=== PATIENT | female | born 1980 | race Caucasian/White ===

== ENCOUNTER 2023-10-19 06:06 | Day surgery (SDC) | payer OTHER, SELFPAY ==
[2023-10-18 08:39] LABS: Hematocrit 40.7 % (37.0-47.0); Hemoglobin 14.3 g/dL (12.0-16.0); Mean Corp Hgb Conc. 35.1 g/dL (33.0-37.0); Mean Corpuscular Volume 88.3 fL (81.0-99.0); Mean Platelet Volume 10.3 fL (7.4-10.4); Platelet Count 253 10^3/uL (130-400); Red Blood Cell Count 4.61 10^6/uL (4.20-5.40); Red Cell Dist. Width 12.6 % (11.5-14.5); White Blood Cell Count 3.4 10^3/uL (4.8-10.8)
[2023-10-18 09:07] LABS: ALT (SGPT) 20 U/L (0-35); AST (SGOT) 28 U/L (14-36); Albumin 4.4 g/dl (3.5-5.0); Alkaline Phosphatase 59 U/L (38-126); Blood Urea Nitrogen 7 mg/dl (7-17); Carbon Dioxide 27 mmol/L (22-30); Chloride 104 mmol/L (98-107); Glucose 93 mg/dl (70-99); Potassium 4.6 mmol/L (3.5-5.1); Sodium 137 mmol/L (135-145); Total Bilirubin 0.5 mg/dl (0.2-1.3); eGFR > 60.00
[2023-10-18 09:14] LABS: Prealbumin (Transthyretin) 26.7 mg/dl (17.6-36.0)
[2023-10-18 09:27] LABS: Vitamin D, 25-OH*** 61.2 ng/mL (30-80)
[2023-10-18 16:39] VITALS: BMI 25.7
[2023-10-19 06:36] VITALS: BMI 25.7
[2023-10-19 06:37] VITALS: BP 123/80
[2023-10-19] MEDS: TYLENOL 1000 MG PO (07:00)
[2023-10-19] MEDS: NORMOSOL-R 1000 IV (07:01)
[2023-10-19 09:08] VITALS: BP 127/66
[2023-10-19 09:15] VITALS: BP 105/53
[2023-10-19 09:30] VITALS: BP 127/83
[2023-10-19 09:45] VITALS: BP 125/66
== END 2023-10-19 10:08 | disposition home or self-care (01) ==
LOC: SDS 06:06
PROVIDERS: ATTENDING PHYSICIAN Surgery; FAMILY PHYSICIAN Internal Medicine; OTHER PHYSICIAN Internal Medicine Hematology & Oncology
DX: D24.2 Benign neoplasm of left breast (principal); N63.20 Unspecified lump in the left breast, unspecified quadrant
CPT/HCPCS: 19301; 88305; 88307; 36415; 80053; 82306; 84134; 85027; 88341; 88342

== ENCOUNTER 2023-12-04 00:47 | Emergency (ER) | payer OTHER, SELFPAY ==
[2023-12-04 00:52] VITALS: BP 142/83
--- NOTE | 2023-12-04 01:13 | ED.GENMED ---
History of Present Illness
General
Chief Complaint: Anxiety
Source: patient
Exam Limitations: none
Time Seen by Provider: 12/04/23 00:59
Travel History
Have you had any contact with someone who has COVID-19?: No
Do you have any symptoms of coronavirus? Fever > 100 degrees, chills, cough, shortness of breath, sore throat, loss of taste or smell, muscle aches, or headache?: No
History of Present Illness
History of Present Illness:
This is a 43 year old female that comes in with c/o panic attack. States that she stopped taking her Anxiety medication about 2 weeks ago. States that she was taking more then 3 times daily that she had gone up to 4 times daily and she told her
doctor about this. States that he did increase her frequently. States that she ran out and it due to get them delivered tomorrow. States that she was trying to wean herself off as she takes so many medications. States that she had some chest
tightness and some SOB that she feels is all related to her anxiety. Denies any fever, chills, abd pain, nausea, vomiting, diarrhea, headache, dizziness, urinary burning.
Past History
Past History
ED Past Medical History: Cancer (Breast), Fibromyalgia, GERD, Psychiatric (Anxiety, Depression, Panic disorder) and Other (Vertigo, Migraines, Cellulitis, Neuropathy, numbness/tingling arms and legs. Demyelination of the Cervical spine, Anemia, )
ED Past Surgical History: Gynecological ( oophorectomy in 2017) and Other (Bilateral mastectomies 06/2014. Then reconstruction with transflap ( Failed), Recently reconstruction with right shoulder musculature 2017 right breast, gastric bypass,
Nipple reconstuction)
Social History
Tobacco: Non-smoker
Alcohol: None
Drug: None
Personal:
Living: with family
Employment: Employed
Family History
Family History: Other (Mother with COPD, father with leukemia)
Review of Systems
Review of Systems
All Other Systems: ROS reviewed and negative except as documented in HPI and ROS
Constitutional: Reports no symptoms; Denies fever or chills
EENT: Reports no symptoms
Respiratory: Reports trouble breathing (Slight); Denies cough
Cardiac: Reports other (Chest tightness)
ABD/GI: Reports no symptoms; Denies abdominal pain, nausea, vomiting or diarrhea
: Reports no symptoms; Denies dysuria, frequency or urgency
Musculoskeletal: Reports no symptoms
Skin: Reports no symptoms
Neurological: Reports no symptoms; Denies dizzy or headache
Psychiatric: Reports no symptoms
Phy Exam
General Physical Exam
General Presentation: mild distress
General age: appears stated age
General Skin: warm and dry
General Habitus: normal
General Mental: anxious
General Hydration: appears well hydrated
ENT Exam
ENT Exam: TM's normal, pharynx normal and neck supple
Eye Exam
Eye Exam: EOMI
Cardiovascular Exam
Cardiovascular Exam: no edema, no murmur, normal peripheral pulses and tachycardia
Pulmonary Exam
Pulmonary Exam: lungs clear, no respiratory distress, no rales, chest non tender, no crackles, no rhonchi, no wheezing and no cough
Gastrointestinal Exam
Gastrointestinal Exam: normal bowel sounds, non tender, soft, no organomegaly, no pulsatile mass and non distended
Abdominal Scars: other (Lower abd horizontal scar)
Musculoskeletal Exam
Musculoskeletal Exam: full ROM and no edema
Skin Exam
Skin Exam: normal color, warm/dry, no rash and no petechia
Psychiatric Exam
Psychiatric Exam: anxious
Course
Orders/Labs/Results
Orders:
Orders
12/04/23 00:57
ECG [Electrocardiogram (*1)] Urgent
Reason for Study: Tachycardia
Cardiology Consult: Venu Briggs
EKG- Treatment ONCE
12/04/23 01:19
Lorazepam [Ativan] 2 mg PO NOW STA
Vital Signs
Initial and Last Documented VS:
Initial Vital Signs
Temp Pulse Resp BP Pulse Ox
97.8 F 140 28 142/83 98
12/04/23 00:52 12/04/23 00:52 12/04/23 00:52 12/04/23 00:52 12/04/23 00:52
Last Documented Vital Signs
Temp Pulse Resp BP Pulse Ox
97.8 F 113 15 106/77 95
12/04/23 00:52 12/04/23 01:45 12/04/23 01:45 12/04/23 01:30 12/04/23 01:45
MDM/Problems Addressed
Differential Diagnosis Includes:
Panic disorder. Anxiety,
MDM/Problems Addressed:
This is a 43 year old female that comes in with c/o panic attack. States that she stopped her medication about 2 weeks ago as she felt she was taking to many medication. States that she also was taking her Medication QID instead of TID and she told
her doctor that and he increase her medication to QID. State that she ran out of her medication and is due to get it delivered tomorrow.
Will medication with Ativan and recheck patient.
Back into see patient. States that she is feeling better and ready to go home. Patient states that her medication is being delivered tomorrow. Will discharge home.
Chronic conditions affecting care: Psychiatric illness
Acute Exacerbation and/or Progression of Chronic Illness: Psychiatric illness
*Pulse Oximetry
Patient hypoxic: no
*EKG
Interpreted by ED Provider?: Yes
Heart Rate: 121
Rate: tachycardiac
Rhythm: sinus
[place]: normal axis
Interval: normal interval
QRS Pattern: normal QRS
Ischemia: no ischemia (Checked by Dr. Rendon)
*Plate Painter Apprentice Interpretation
Rate: tachycardiac
Interpretation: normal
Heart Rate: 131
Rhythm: sinus tachycardia
*Critical Care Note
Total Time (30-74mins, 75-104mins- exclusive of procedures): Not Applicable
ED Attending Note
-
Portions of this chart may have been created with voice recognition software.� Occasional wrong word or��sound alike� substitutions may have occurred due to the inherent limitations of voice recognition software.
Discharge Plan
Departure
Patient Disposition: Home (Routine Discharge)
Date of Disposition: 12/04/23
Time of Disposition: 01:58
Patient with high blood pressure during this ER visit?: No
Condition: Good
Covid-19: Not Applicable
Discharge Problem:
Panic disorder
Instructions: Panic Disorder (DC)
Prescriptions:
No Action
Vitamin B12 1,000 MG
1 dose SC MONTHLY
Rx Instructions:
due next month
anastrozole 1 MG tablet
1 mg PO DAILY
folic acid 1 MG tablet
1 mg PO DAILY
verapamil 80 MG tablet
80 mg PO TID
Linzess 290 MCG capsule
290 mcg PO DAILY
clorazepate dipotassium [Tranxene T-Tab] 7.5 mg Tablet
15 mg PO TID
Prolia 60 mg/mL Syringe
60 mg SC [id number]
Rx Instructions:
due in june
desvenlafaxine succinate [Pristiq] 100 mg Tablet Extended Release 24 Hr
100 mg PO DAILY
Nucynta 100 mg Tablet
100 mg PO TID
Vraylar 3 mg Capsule
3 mg PO DAILY
betamethasone dipropionate 0.05 % cream
1 applic topical BID PRN (Reason: sores)
acetaminophen [Tylenol Ex Str Arthritis Pain] 500 mg Tablet
1,000 mg PO Q6H PRN (Reason: pain)
Referrals:
Stephon Harper MD [Family Provider] -
Activity Restrictions/Additional Instructions:
As discussed, please take your medication as prescribed. Follow up with your Psychiatrist for further evaluation and your Family doctor. IF YOU HAVE ANY OTHER CONCERNS PLEASE RETURN TO THE EMERGENCY ROOM.
Interventions
Interventions:
*Risk Screen - Suicide Last Done: 12/04/23 00:52
*General Assessment Last Done: 12/04/23 00:52
*Neglect/Abuse Screening Last Done: 12/04/23 00:52
ED- Fall Risk Assessment Last Done: 12/04/23 00:52
*ED COVID-19 Vaccine History Last Done: 12/04/23 00:52
ED-Psychological Assessment Last Done: 12/04/23 01:15
Discharge Date and Time
Print Language: NIGERIEN
[2023-12-04] MEDS: ATIVAN 2 MG PO (01:22)
[2023-12-04 01:30] VITALS: BP 106/77
== END 2023-12-04 02:09 | disposition home or self-care (01) ==
LOC: EMR 00:47
PROVIDERS: EMERGENCY PHYSICIAN Emergency Medicine; FAMILY PHYSICIAN Internal Medicine
DX: F41.0 Panic disorder [episodic paroxysmal anxiety] (principal); R07.89 Other chest pain; R06.02 Shortness of breath; F41.9 Anxiety disorder, unspecified; F32.A Depression, unspecified; M79.7 Fibromyalgia; K21.9 Gastro-esophageal reflux disease without esophagitis; Z85.3 Personal history of malignant neoplasm of breast; G62.9 Polyneuropathy, unspecified; D64.9 Anemia, unspecified; Z90.13 Acquired absence of bilateral breasts and nipples; Z98.84 Bariatric surgery status; Z88.8 Allergy status to other drugs, medicaments and biological substances
CPT/HCPCS: 99283; 93005

== ENCOUNTER → 2023-12-07 17:26 | Outpatient (REF) | payer OTHER, SELFPAY | LOC: MRI 17:26 | PROVIDERS: ATTENDING PHYSICIAN Nurse Practitioner Family; FAMILY PHYSICIAN Internal Medicine | DX: G43.E09 Chronic migraine with aura, not intractable, without status migrainosus (principal); R26.9 Unspecified abnormalities of gait and mobility | CPT/HCPCS: 70553; 72156; A9575 ==

== ENCOUNTER 2024-02-19 02:40 | Emergency (ER) | payer OTHER, SELFPAY ==
[2024-02-19 02:48] VITALS: BP 148/93
[2024-02-19 03:03] VITALS: BMI 27.0
[2024-02-19 03:05] VITALS: BP 129/88
[2024-02-19] MEDS: NSS 1000 IV (03:28)
[2024-02-19 04:00] VITALS: BP 112/75
[2024-02-19 04:06] LABS: % Basophils 0.4 % (0-2); % Eosinophils 0.8 % (0-6); % Immature Granulocytes 0.2 % (0-0.5); % Lymphocytes 37.1 % (20.5-51.1); % Monocytes 5.6 % (1.7-9.3); % Neutrophils 55.9 % (42.2-75.2); Absolute Lymphocytes 1.8 10^3/uL (1.2-3.4); Absolute Monocytes 0.3 10^3/uL (0.1-0.6); Absolute Neutrophils 2.8 10^3/uL (1.4-6.5); Hematocrit 34.9 % (37.0-47.0); Hemoglobin 12.5 g/dL (12.0-16.0); Mean Corp Hgb Conc. 35.8 g/dL (33.0-37.0); Mean Corpuscular Hgb 32.1 pg (27.0-31.0); Mean Corpuscular Volume 89.7 fL (81.0-99.0); Nucleated Red Blood Cells % 0 %; Platelet Count 212 10^3/uL (130-400); Red Blood Cell Count 3.89 10^6/uL (4.20-5.40); Red Cell Dist. Width 12.5 % (11.5-14.5)
[2024-02-19] MEDS: ATIVAN 1 MG IV (04:14)
[2024-02-19 04:25] LABS: ALT (SGPT) 13 U/L (0-35); AST (SGOT) 19 U/L (14-36); Albumin 4.3 g/dl (3.5-5.0); Alkaline Phosphatase 54 U/L (38-126); Blood Urea Nitrogen 14 mg/dl (7-17); Calcium 9.4 mg/dl (8.4-10.2); Carbon Dioxide 26 mmol/L (22-30); Chloride 103 mmol/L (98-107); Estimated Creatinine Clearance 118 ml/min; Glucose 130 mg/dl (70-99); Potassium 3.6 mmol/L (3.5-5.1); Sodium 137 mmol/L (135-145); Total Bilirubin 0.4 mg/dl (0.2-1.3); Total Protein 6.4 g/dl (6.3-8.2); eGFR > 60.00
--- NOTE | 2024-02-19 04:39 | ED.GENMED ---
History of Present Illness
General
Chief Complaint: Medication Reaction
Source: patient and previous hospital records (Previous ED visits)
Exam Limitations: none
Time Seen by Provider: 02/19/24 03:52
Nursing documentation reviewed up to this point in time: agreed with
History of Present Illness
History of Present Illness:
This is a 43-year-old woman with longstanding history of anxiety, panic disorder for which she follows with a psychiatrist for quite some time. She admits to significant anxiety over the past several months and has been following with her
psychiatrist with adjustment in medications. More recently she began Pristiq as well as Vraylar approximately 3 to 4 months ago. She is also chronically maintained on Nucynta. Chronically maintained on clorazepate. She has had some chronic
difficulty sleeping, started Quviviq approximately 2 months ago, thus far has not improved her sleep and more recently perhaps within the past months was started on prazosin at bedtime.
She presents with complaints of feeling shaky intermittent brief muscle spasms of her legs and lower abdomen that is most noted at nighttime, sporadic over the past week. She admits to feeling worried, concerned that she was having an adverse
reaction such as serotonin syndrome and brought herself to the ED for evaluation.
She has not had a fever, no nausea nor vomiting, no dizziness nor lightheadedness.
Symptoms are most noted at nighttime, for the most part asymptomatic during the day.
She denies alcohol nor drug use.
Denies risk of .
Past History
Past History
ED Past Medical History: Cancer (Breast), Fibromyalgia, GERD, Psychiatric (Anxiety, Depression, Panic disorder) and Other (Vertigo, Migraines, Cellulitis, Neuropathy, numbness/tingling arms and legs. Demyelination of the Cervical spine, Anemia, )
ED Past Surgical History: Gynecological ( oophorectomy in 2017) and Other (Bilateral mastectomies 06/2014. Then reconstruction with transflap ( Failed), Recently reconstruction with right shoulder musculature 2017 right breast, gastric bypass,
Nipple reconstuction)
Social History
Tobacco: Non-smoker
Alcohol: None
Drug: None
Personal:
Living: with family
Employment: Employed
Family History
Family History: Other (Mother with COPD, father with leukemia)
Phy Exam
Physical Exam
Physical Exam:
GENERAL: 43-year-old woman appears her stated age, bright and alert, easily communicative. Very mildly anxious but otherwise in no acute distress. Afebrile. Normotensive. Without tachycardia.
EYE: pupils equal and reactive. anicteric
NECK: Supple, nontender, no meningismus, no significant adenopathy.
ENT: oral mucosa is moist. No rhinorrhea.
CARDIAC: Regular rate and rhythm. no murmur.
LUNGS: Clear breath sounds bilaterally, no acute respiratory distress, no wheezes/rales/rhonchi
ABDOMEN: Soft, nondistended, without focal tenderness, no r/g, normoactive BS.
NEUROLOGICAL: Alert and oriented x3, no focal neuro deficits. Motor strength is 5/5 bilaterally. There is no tremor nor akathisia.
SKIN: Warm and dry, normal color, skin intact. No rash.
MUSCULOSKELETAL: No C/C/E. peripheral pulses are full and equal b/l. No palpable tenderness.
PSYCH: Mildly anxious. Cooperative. Easily communicative.
Course
Orders/Labs/Results
Orders:
Orders
02/19/24 03:07
Electrocardiogram (*1) Urgent
Reason for Study: Bradycardia / Tachycardia
02/19/24 03:08
EKG- Treatment ONCE
02/19/24 03:25
CMP [Comprehensive Metabolic Panel] Urgent
Complete Blood Count/With Diff Urgent
Creatine Phosphokinase Urgent
Comment: ADD ON
02/19/24 03:27
0.9% Sodium Chloride 1000 ml [Nss] 1,000 ml IV BOLUS
02/19/24 03:58
Add On- LAB Urgent
Tests Added?: cpk
02/19/24 04:07
Lorazepam [Ativan] 1 mg IV NOW STA
Abnormal Lab Results
02/19/24
03:25
RBC 3.89 L 10^6/uL
(4.20-5.40)
Hct 34.9 L %
(37.0-47.0)
MCH 32.1 H pg
(27.0-31.0)
Creatinine 0.5 L mg/dL
(0.6-1.0)
Glucose 130 H mg/dl
(70-99)
02/19/24 03:25
02/19/24 03:25
Vital Signs
Initial and Last Documented VS:
Initial Vital Signs
Temp Pulse Resp BP Pulse Ox
98.3 F 128 18 148/93 96
02/19/24 02:48 02/19/24 02:48 02/19/24 02:48 02/19/24 02:48 02/19/24 02:48
Last Documented Vital Signs
Temp Pulse Resp BP Pulse Ox
98.3 F 87 16 112/75 96
02/19/24 02:48 02/19/24 04:45 02/19/24 04:45 02/19/24 04:00 02/19/24 04:45
MDM/Problems Addressed
Differential Diagnosis Includes:
Concern for adverse medication reaction versus anxiety/panic.
There is no evidence of toxidrome on exam. Nothing to suggest serotonin syndrome nor neuroleptic malignant syndrome.
No evidence of extrapyramidal reaction/akathisia.
Labs are pending and will check CPK to assess for myopathy.
Will give an IV dose of Ativan and continue to observe.
Chronic conditions affecting care: Psychiatric illness
Acute Exacerbation and/or Progression of Chronic Illness: Psychiatric illness
*Pulse Oximetry
Patient hypoxic: no
*Deicer Element Winder Machine Interpretation
Rate: normal
Interpretation: normal
Rhythm: sinus
*Critical Care Note
Total Time (30-74mins, 75-104mins- exclusive of procedures): Not Applicable
Update Note
Update Note:
02/19/2024 0532 AM
Patient feeling markedly improved after IV Ativan. Resting comfortably and is eager to be discharged to home.
Labs are unremarkable. CPK is normal.
I suspect symptoms are all generalized anxiety in nature and recommend she follow-up with her psychiatrist for further care.
ED Attending Note
-
Portions of this chart may have been created with voice recognition software.� Occasional wrong word or��sound alike� substitutions may have occurred due to the inherent limitations of voice recognition software.
Discharge Plan
Departure
Patient Disposition: Home (Routine Discharge)
Date of Disposition: 02/19/24
Time of Disposition: 05:35
Patient with high blood pressure during this ER visit?: No
Discharge Problem:
Generalized anxiety disorder with panic attacks
Instructions: Generalized Anxiety Disorder (DC)
Prescriptions:
No Action
Vitamin B12 1,000 MG
1 dose SC MONTHLY
Rx Instructions:
due next month
anastrozole 1 MG tablet
1 mg PO DAILY
verapamil 80 MG tablet
80 mg PO TID
clorazepate dipotassium [Tranxene T-Tab] 7.5 mg Tablet
15 mg PO TID
Prolia 60 mg/mL Syringe
60 mg SC [id number]
Rx Instructions:
due in june
desvenlafaxine succinate [Pristiq] 100 mg Tablet Extended Release 24 Hr
100 mg PO DAILY
Nucynta 100 mg Tablet
100 mg PO TID
Vraylar 3 mg Capsule
3 mg PO DAILY
acetaminophen [Tylenol Ex Str Arthritis Pain] 500 mg Tablet
1,000 mg PO Q6H PRN (Reason: pain)
prazosin [Minipress] 5 mg Capsule
5 mg PO HS
Quviviq 50 mg Tablet
50 mg PO HS
Referrals:
Stephon Harper MD [Family Provider] - Call in 1-3 days for appt
Activity Restrictions/Additional Instructions:
Stay well-hydrated on a daily basis.
Follow-up with your psychiatrist for further evaluation.
Interventions
Interventions:
*Risk Screen - Suicide Last Done: 02/19/24 02:58
*General Assessment Last Done: 02/19/24 02:48
*Neglect/Abuse Screening Last Done: 02/19/24 02:48
ED- Fall Risk Assessment Last Done: 02/19/24 02:48
*ED COVID-19 Vaccine History Last Done: 02/19/24 02:48
ED-Skin Assessment Last Done: 02/19/24 03:13
ED- Pulmonary Assessment Last Done: 02/19/24 03:13
ED-EENT Assessment Last Done: 02/19/24 03:13
Discharge Date and Time
Print Language: SYRIAN
[2024-02-19 05:19] LABS: Creatine Phosphokinase 91 U/L (30-135)
== END 2024-02-19 05:51 | disposition home or self-care (01) ==
LOC: EMR 02:40
PROVIDERS: EMERGENCY PHYSICIAN Emergency Medicine; FAMILY PHYSICIAN Internal Medicine
DX: F41.1 Generalized anxiety disorder (principal); F41.0 Panic disorder [episodic paroxysmal anxiety]
CPT/HCPCS: 99284; 96374; 96361; 80053; 82550; 85025; 93005

== ENCOUNTER 2024-05-30 15:58 | Emergency (ER) | payer OTHER, SELFPAY ==
[2024-05-30 16:13] VITALS: BP 132/94
--- NOTE | 2024-05-30 16:20 | ED.GENMED ---
ED Provider Triage
-
Patient seen by provider in Triage?: Seen in Triage
Attestation: A medical screening examination has been initiated by a qualified medical provider. Based on the assessment performed at this time, it has been determined that an emergent medical condition may exist and the patient has been informed
that further medical evaluation and possible additional diagnostic testing may be needed.
HPI: 43-year-old female with history of chronic migraines presents to the emergency department for evaluation of intractable migraine since 6 AM today. Travels from the right eye through the back and scalp. Consistent with past migraines, no
atypical symptoms. No vomiting or fevers. Took clorazepate and acetaminophen without relief
GENERAL: Alert , in no apparent distress
EYE: No visual abnormalities.
NECK: Trachea midline
ENT: No visible abnormalities.
LUNGS: No acute respiratory distress
NEUROLOGICAL: Alert and oriented
SKIN: Skin intact. No visible changes.
MUSCULOSKELETAL: Moving extremities normally
PSYCH: Normal and appropriate interaction.
A/P: Typical migraine symptoms with no atypical presentation per patient, will give IM Toradol.
This is a medical evaluation conducted in person to initiate diagnostic evaluation and provide initial therapeutics. Please see further documentation by the treating clinician.
History of Present Illness
General
Chief Complaint: Headache
Past History
Past History
ED Past Medical History: Cancer (Breast), Fibromyalgia, GERD, Psychiatric (Anxiety, Depression, Panic disorder) and Other (Vertigo, Migraines, Cellulitis, Neuropathy, numbness/tingling arms and legs. Demyelination of the Cervical spine, Anemia, )
ED Past Surgical History: Gynecological ( oophorectomy in 2017) and Other (Bilateral mastectomies 06/2014. Then reconstruction with transflap ( Failed), Recently reconstruction with right shoulder musculature 2017 right breast, gastric bypass,
Nipple reconstuction)
Social History
Tobacco: Non-smoker
Alcohol: None
Drug: None
Personal:
Living: with family
Employment: Employed
Family History
Family History: Other (Mother with COPD, father with leukemia)
Course
Orders/Labs/Results
Orders:
Orders
05/30/24 16:18
Ketorolac [Toradol] 30 mg IM NOW STA
Vital Signs
Initial and Last Documented VS:
Initial Vital Signs
Temp Pulse Resp BP Pulse Ox
99.5 F 114 18 132/94 99
05/30/24 16:13 05/30/24 16:13 05/30/24 16:13 05/30/24 16:13 05/30/24 16:13
Last Documented Vital Signs
Temp Pulse Resp BP Pulse Ox
99.5 F 114 18 132/94 99
05/30/24 16:13 05/30/24 16:13 05/30/24 16:13 05/30/24 16:13 05/30/24 16:13
ED Attending Note
-
Portions of this chart may have been created with voice recognition software.� Occasional wrong word or��sound alike� substitutions may have occurred due to the inherent limitations of voice recognition software.
Discharge Plan
Departure
Prescriptions:
No Action
Vitamin B12 1,000 MG
1 dose SC MONTHLY
Rx Instructions:
due next month
anastrozole 1 MG tablet
1 mg PO DAILY
verapamil 80 MG tablet
80 mg PO TID
clorazepate dipotassium [Tranxene T-Tab] 7.5 mg Tablet
15 mg PO TID
Prolia 60 mg/mL Syringe
60 mg SC [id number]
Rx Instructions:
due in june
desvenlafaxine succinate [Pristiq] 100 mg Tablet Extended Release 24 Hr
100 mg PO DAILY
Nucynta 100 mg Tablet
100 mg PO TID
Vraylar 3 mg Capsule
3 mg PO DAILY
acetaminophen [Tylenol Ex Str Arthritis Pain] 500 mg Tablet
1,000 mg PO Q6H PRN (Reason: pain)
prazosin [Minipress] 5 mg Capsule
5 mg PO HS
Quviviq 50 mg Tablet
50 mg PO HS
Interventions
Interventions:
*Risk Screen - Suicide Last Done: 05/30/24 16:13
Discharge Date and Time
Print Language: [id number]
[2024-05-30] MEDS: TORADOL 30 MG IM (16:26)
[2024-05-30 16:50] VITALS: BMI 29.0
[2024-05-30] MEDS: NSS 1000 IV (18:15)
[2024-05-30] MEDS: BENADRYL 50 MG IV (18:16)
[2024-05-30] MEDS: COMPAZINE 10 MG IV (18:18)
[2024-05-30 18:44] VITALS: BP 118/77
--- NOTE | 2024-05-30 18:48 | ED.GENMED ---
ED Provider Triage
<Henri Hernandez PA-C - Last Filed: 05/31/24 10:15>
-
Patient seen by provider in Triage?: Seen in Triage
Attestation: A medical screening examination has been initiated by a qualified medical provider. Based on the assessment performed at this time, it has been determined that an emergent medical condition may exist and the patient has been informed
that further medical evaluation and possible additional diagnostic testing may be needed.
HPI: 43-year-old female with history of chronic migraines presents to the emergency department for evaluation of intractable migraine since 6 AM today. Travels from the right eye through the back and scalp. Consistent with past migraines, no
atypical symptoms. No vomiting or fevers. Took clorazepate and acetaminophen without relief
GENERAL: Alert , in no apparent distress
EYE: No visual abnormalities.
NECK: Trachea midline
ENT: No visible abnormalities.
LUNGS: No acute respiratory distress
NEUROLOGICAL: Alert and oriented
SKIN: Skin intact. No visible changes.
MUSCULOSKELETAL: Moving extremities normally
PSYCH: Normal and appropriate interaction.
A/P: Typical migraine symptoms with no atypical presentation per patient, will give IM Toradol.
This is a medical evaluation conducted in person to initiate diagnostic evaluation and provide initial therapeutics. Please see further documentation by the treating clinician.
History of Present Illness
<Gabi Salomon NP - Last Filed: 05/31/24 15:44>
General
Chief Complaint: Headache
Source: patient
Exam Limitations: none
Time Seen by Provider: 05/30/24 17:53
Nursing documentation reviewed up to this point in time: agreed with
History of Present Illness
History of Present Illness:
Patient to ED with complaint of migraine headache, not responding to typical migraine meds. Migraine is typical. Brought self to ED for eval. Also report history of anxiety, follows outpatient with therapist. Feels like her anxiety is worse also
Brought to ED by spouse for eval.
Past History
<Gabi M. Grandizio, BODY FORMER - Last Filed: 05/31/24 15:44>
Past History
ED Past Medical History: Cancer (Breast), Fibromyalgia, GERD, Psychiatric (Anxiety, Depression, Panic disorder) and Other (Vertigo, Migraines, Cellulitis, Neuropathy, numbness/tingling arms and legs. Demyelination of the Cervical spine, Anemia, )
ED Past Surgical History: Gynecological ( oophorectomy in 2017) and Other (Bilateral mastectomies 06/2014. Then reconstruction with transflap ( Failed), Recently reconstruction with right shoulder musculature 2017 right breast, gastric bypass,
Nipple reconstuction)
Social History
Tobacco: Non-smoker
Alcohol: None
Drug: None
Personal:
Living: with family
Employment: Employed
Family History
Family History: Other (Mother with COPD, father with leukemia)
Review of Systems
<Gabi Salomon NP - Last Filed: 05/31/24 15:44>
Review of Systems
Allergies reviewed?: Yes
All Other Systems: ROS reviewed and negative except as documented in HPI and ROS
Constitutional: Reports no symptoms
EENT: Reports no symptoms
Respiratory: Reports no symptoms
Cardiac: Reports no symptoms
ABD/GI: Reports no symptoms
: Reports no symptoms
Musculoskeletal: Reports no symptoms
Skin: Reports no symptoms
Neurological: Reports headache
Psychiatric: Reports anxiety
Phy Exam
<Gabi Salomon NP - Last Filed: 05/31/24 15:44>
General Physical Exam
General Presentation: well appearing and no apparent distress
General age: appears stated age
General Skin: warm
General Habitus: normal
General Mental: alert
ENT Exam
ENT Exam: EOMI and neck supple
Eye Exam
Eye Exam: PERRL, EOMI and globe normal
Gastrointestinal Exam
Gastrointestinal Exam: non tender and soft
Neurological Exam
Neurological Exam: alert, oriented x3, CN II-XII intact, no motor deficits, no sensory deficits and normal gait
Musculoskeletal Exam
Musculoskeletal Exam: full ROM and neuro vasc intact
Skin Exam
Skin Exam: normal color, warm/dry and no rash
Psychiatric Exam
Psychiatric Exam: normal mood/affect
Course
<Gabi Salomon NP - Last Filed: 05/31/24 15:44>
Orders/Labs/Results
Orders:
Orders
05/30/24 16:18
Ketorolac [Toradol] 30 mg IM NOW STA
05/30/24 17:59
Diphenhydramine [Benadryl] 50 mg IV NOW STA
Prochlorperazine [Compazine] 10 mg IV NOW STA
05/30/24 18:00
0.9% Sodium Chloride 1000 ml [Nss] 1,000 ml IV BOLUS
05/30/24 19:13
Lorazepam [Ativan] 0.5 mg PO NOW STA
Vital Signs
Initial and Last Documented VS:
Initial Vital Signs
Temp Pulse Resp BP Pulse Ox
99.5 F 114 18 132/94 99
05/30/24 16:13 05/30/24 16:13 05/30/24 16:13 05/30/24 16:13 05/30/24 16:13
Last Documented Vital Signs
Temp Pulse Resp BP Pulse Ox
99.5 F 82 18 118/77 98
05/30/24 16:13 05/30/24 18:44 05/30/24 18:44 05/30/24 18:44 05/30/24 18:44
<Henri Hernandez PA-C - Last Filed: 05/31/24 10:15>
Orders/Labs/Results
Orders:
Orders
05/30/24 16:18
Ketorolac [Toradol] 30 mg IM NOW STA
05/30/24 17:59
Diphenhydramine [Benadryl] 50 mg IV NOW STA
Prochlorperazine [Compazine] 10 mg IV NOW STA
05/30/24 18:00
0.9% Sodium Chloride 1000 ml [Nss] 1,000 ml IV BOLUS
05/30/24 19:13
Lorazepam [Ativan] 0.5 mg PO NOW STA
Vital Signs
Initial and Last Documented VS:
Initial Vital Signs
Temp Pulse Resp BP Pulse Ox
99.5 F 114 18 132/94 99
05/30/24 16:13 05/30/24 16:13 05/30/24 16:13 05/30/24 16:13 05/30/24 16:13
Last Documented Vital Signs
Temp Pulse Resp BP Pulse Ox
99.5 F 82 18 118/77 98
05/30/24 16:13 05/30/24 18:44 05/30/24 18:44 05/30/24 18:44 05/30/24 18:44
<Gabi Salomon NP - Last Filed: 05/31/24 15:44>
MDM/Problems Addressed
Differential Diagnosis Includes:
Differential diagnosis includes but is not limited to: SAH, intracranial mass/lesion, meningitis.
Head pain is unchanged from typical migraine. No history of trauma. No n/v, vision symptoms. Afebrile. given migraine cocktail with resolution of pain.
<Gabi Salomon NP - Last Filed: 05/31/24 15:44>
*Pulse Oximetry
Patient hypoxic: no
<Henri Hernandez PA-C - Last Filed: 05/31/24 10:15>
*Critical Care Note
Total Time (30-74mins, 75-104mins- exclusive of procedures): Not Applicable
<Gabi Salomon NP - Last Filed: 05/31/24 15:44>
Update Note
Update Note:
Improved with IVF, mgraine cocktail. Now requestingIV ativan for her anxiety. Will give 0.5mg po and discharge home. She can follow up with her therapist in the AM
ED Attending Note
<Gabi Salomon NP - Last Filed: 05/31/24 15:44>
-
Portions of this chart may have been created with voice recognition software.� Occasional wrong word or��sound alike� substitutions may have occurred due to the inherent limitations of voice recognition software.
Discharge Plan
Departure
Patient Disposition: Home (Routine Discharge)
Date of Disposition: 05/30/24
Time of Disposition: 19:12
Patient with high blood pressure during this ER visit?: No
Condition: Good
Covid-19: Not Applicable
Discharge Problem:
Migraine
Instructions: Migraines (DC), Panic Disorder (DC)
Prescriptions:
No Action
Vitamin B12 1,000 MG
1 dose SC MONTHLY
Rx Instructions:
due next month
anastrozole 1 MG tablet
1 mg PO DAILY
verapamil 80 MG tablet
80 mg PO TID
clorazepate dipotassium [Tranxene T-Tab] 7.5 mg Tablet
15 mg PO TID
Prolia 60 mg/mL Syringe
60 mg SC [id number]
Rx Instructions:
due in june
desvenlafaxine succinate [Pristiq] 100 mg Tablet Extended Release 24 Hr
100 mg PO DAILY
Nucynta 100 mg Tablet
100 mg PO TID
Vraylar 3 mg Capsule
3 mg PO DAILY
acetaminophen [Tylenol Ex Str Arthritis Pain] 500 mg Tablet
1,000 mg PO Q6H PRN (Reason: pain)
prazosin [Minipress] 5 mg Capsule
5 mg PO HS
Quviviq 50 mg Tablet
50 mg PO HS
Referrals:
Stephon Harper MD [Family Provider] - Tomorrow
Interventions
Interventions:
*Risk Screen - Suicide Last Done: 05/30/24 16:13
*General Assessment Last Done: 05/30/24 16:50
*Neglect/Abuse Screening Last Done: 05/30/24 16:50
ED- Fall Risk Assessment Last Done: 05/30/24 16:50
*ED COVID-19 Vaccine History Last Done: 05/30/24 16:50
*Nursing Disposition Last Done: 05/30/24 19:31
ED- Neurological Assessment Last Done: 05/30/24 16:56
ED-Psychological Assessment Last Done: 05/30/24 16:56
Discharge Date and Time
Discharge Date/Time: 05/30/24 19:31
Print Language: GERMAN
[2024-05-30] MEDS: ATIVAN 0.5 MG PO (19:27)
== END 2024-05-30 19:31 | disposition home or self-care (01) ==
LOC: EMR 15:58
PROVIDERS: EMERGENCY PHYSICIAN Emergency Medicine; FAMILY PHYSICIAN Internal Medicine
DX: G43.909 Migraine, unspecified, not intractable, without status migrainosus (principal); M79.7 Fibromyalgia; K21.9 Gastro-esophageal reflux disease without esophagitis; F41.8 Other specified anxiety disorders; Z85.3 Personal history of malignant neoplasm of breast; Z90.13 Acquired absence of bilateral breasts and nipples; Z90.721 Acquired absence of ovaries, unilateral; Z98.84 Bariatric surgery status
CPT/HCPCS: 99282; 96374; 96375; 96372; 96361

== ENCOUNTER → 2024-11-27 14:31 | Outpatient (REF) | payer OTHER, SELFPAY | LOC: WDC 14:31 | PROVIDERS: ATTENDING PHYSICIAN Nurse Practitioner Acute Care | DX: N63.11 Unspecified lump in the right breast, upper outer quadrant (principal) | CPT/HCPCS: 76642 ==

== ENCOUNTER → 2024-12-27 13:30 | Outpatient (REF) | payer OTHER, SELFPAY ==
[2024-12-27 14:34] LABS: Hematocrit 40.2 % (37.0-47.0); Hemoglobin 13.9 g/dL (12.0-16.0); Mean Corp Hgb Conc. 34.6 g/dL (33.0-37.0); Mean Corpuscular Hgb 31.4 pg (27.0-31.0); Mean Corpuscular Volume 90.7 fL (81.0-99.0); Mean Platelet Volume 11.2 fL (7.4-10.4); Platelet Count 226 10^3/uL (130-400); Red Blood Cell Count 4.43 10^6/uL (4.20-5.40); Red Cell Dist. Width 12.2 % (11.5-14.5)
[2024-12-27 14:50] LABS: Absolute Neutrophils -Man Diff 1.2 10^3/uL (1.4-6.5); Atypical Lymphocytes 6 %; Band Neutrophils 0 % (0-3); Eosinophils 2 % (0-6); Lymphocytes 57 % (20-51); Monocytes 4 % (2-9); Normal RBC Morphology No; Ovalocytes 1+; Platelets Checked Yes; Segmented Neutrophils 31 % (42-75)
[2024-12-27 14:51] LABS: Total Cells Counted 100
[2024-12-27 15:30] LABS: Blood Urea Nitrogen 11 mg/dl (7-17); Carbon Dioxide 28 mmol/L (22-30); Glucose 92 mg/dl (70-99); eGFR > 60.00
[2024-12-27 15:40] LABS: Chloride 103 mmol/L (98-107); Potassium 4.3 mmol/L (3.5-5.1); Sodium 142 mmol/L (135-145)
== END ==
LOC: REG 13:30
PROVIDERS: FAMILY PHYSICIAN Internal Medicine; OTHER PHYSICIAN Plastic Surgery
DX: Z90.13 Acquired absence of bilateral breasts and nipples (principal)
CPT/HCPCS: 80048; 85025; 93005

== ENCOUNTER 2025-06-27 10:45 | Emergency (ER) | payer OTHER, SELFPAY ==
[2025-06-27 10:50] VITALS: BP 147/97
--- NOTE | 2025-06-27 11:44 | ED.GENMED ---
History of Present Illness
General
Chief Complaint: Anxiety
Source: patient
Exam Limitations: none
Time Seen by Provider: 06/27/25 11:27
Nursing documentation reviewed up to this point in time: agreed with
History of Present Illness
History of Present Illness:
Patient with longstanding history of depression/anxiety, maintained on Tranxene daily, as prescribed by her psychiatrist, presents to ED secondary to increased anxiety, as she has run out of her medication 5 days ago. Patient states that she has
been taking extra tablet, as she is under heavy stress due to recent hospitalization for her . Denies suicidal or homicidal ideation. Denies fever or chills. Patient states that she is scheduled to receive her anxiety medication via mail
tomorrow. She needs medications to get her through next 2 days.
Past History
Past History
ED Past Medical History: Cancer (Breast), Fibromyalgia, GERD, Psychiatric (Anxiety, Depression, Panic disorder) and Other (Vertigo, Migraines, Cellulitis, Neuropathy, numbness/tingling arms and legs. Demyelination of the Cervical spine, Anemia, )
ED Past Surgical History: Gynecological ( oophorectomy in 2017) and Other (Bilateral mastectomies 06/2014. Then reconstruction with transflap ( Failed), Recently reconstruction with right shoulder musculature 2017 right breast, gastric bypass,
Nipple reconstuction)
Social History
Tobacco: Non-smoker
Alcohol: None
Drug: None
Personal:
Living: with family
Employment: Employed
Family History
Family History: Other (Mother with COPD, father with leukemia)
Review of Systems
Review of Systems
Allergies reviewed?: Yes
All Other Systems: ROS reviewed and negative except as documented in HPI and ROS
Constitutional: Reports no symptoms
Respiratory: Reports no symptoms; Denies trouble breathing
Cardiac: Reports no symptoms; Denies chest pain or palpitations
ABD/GI: Reports no symptoms
Musculoskeletal: Reports no symptoms
Skin: Reports no symptoms
Neurological: Reports no symptoms
Psychiatric: Reports anxiety
Phy Exam
Physical Exam
Physical Exam:
Physical Exam
General: mild distress, not acutely ill. afebrile
Head: nc/at. eomi
Neck: supple. no meningeal signs.
Heart: s1/s2 regular rate and rhythm, but tachycardic
Lungs: no acute respiratory distress. clear bilaterally
Abdomen: normal bowel sounds. not tender.
Neuro: alert and oriented x 3. no focal neurological deficits
Skin: no rash
Psychiatric: well kept. interactive and cooperative, but anxious appearing
Extremities: no edema. no calf tenderness.
Course
Vital Signs
Initial and Last Documented VS:
Initial Vital Signs
Temp Pulse Resp BP Pulse Ox
98.3 F 129 20 147/97 98
06/27/25 10:50 06/27/25 10:50 06/27/25 10:50 06/27/25 10:50 06/27/25 10:50
Last Documented Vital Signs
Temp Pulse Resp BP Pulse Ox
98.3 F 94 20 128/74 99
06/27/25 10:50 06/27/25 11:58 06/27/25 11:58 06/27/25 11:58 06/27/25 11:58
MDM/Problems Addressed
MDM/Problems Addressed:
History and exam concerning for exacerbation of underlying anxiety disorder, especially as patient has run out of her daily, maintenance medication. Although patient is scheduled to receive her medication, with concern for potential withdrawal
symptoms, i.e. seizures, with abrupt disruption of benzodiazepine medication, patient will be prescribed short course of Ativan, until she receives her medication tomorrow. Patient otherwise is afebrile, hemodynamically stable, and appears
comfortable, at time of discharge.
*Pulse Oximetry
SaO2: 98
Oxygen Mode of Delivery: Room air
Patient hypoxic: no
*Critical Care Note
Total Time (30-74mins, 75-104mins- exclusive of procedures): Not Applicable
ED Attending Note
-
Portions of this chart may have been created with voice recognition software.� Occasional wrong word or��sound alike� substitutions may have occurred due to the inherent limitations of voice recognition software.
Discharge Plan
Departure
Patient Disposition: Home (Routine Discharge)
Date of Disposition: 06/27/25
Time of Disposition: 11:50
Patient with high blood pressure during this ER visit?: Yes
Condition: Fair
Discharge Problem:
Anxiety
Instructions: Anxiety, Adult (DC)
Prescriptions:
New
lorazepam [Ativan] 1 mg tablet
1 mg PO TID PRN (Reason: anxiety) Qty: 6 0RF
No Action
Vitamin B12 1,000 MG
1 dose SC MONTHLY
Rx Instructions:
due next month
anastrozole 1 MG tablet
1 mg PO DAILY
verapamil 80 MG tablet
80 mg PO TID
clorazepate dipotassium [Tranxene T-Tab] 7.5 mg Tablet
15 mg PO TID
Prolia 60 mg/mL Syringe
60 mg SC [id number]
Rx Instructions:
due in june
desvenlafaxine succinate [Pristiq] 100 mg Tablet Extended Release 24 Hr
100 mg PO DAILY
Nucynta 100 mg Tablet
100 mg PO TID
Vraylar 3 mg Capsule
3 mg PO DAILY
acetaminophen [Tylenol Ex Str Arthritis Pain] 500 mg Tablet
1,000 mg PO Q6H PRN (Reason: pain)
prazosin [Minipress] 5 mg Capsule
5 mg PO HS
Quviviq 50 mg Tablet
50 mg PO HS
Referrals:
Korina Darden MD [Family Provider, Internal Medicine]
Activity Restrictions/Additional Instructions:
As discussed, please follow-up with your primary care physician and/or psychiatrist for continual evaluation and treatment. Your prescription has been sent electronically to [facility] pharmacy in [place].
Interventions
Interventions:
*Risk Screen - Suicide Last Done: 06/27/25 11:59
*General Assessment Last Done: 06/27/25 10:50
*Neglect/Abuse Screening Last Done: 06/27/25 10:50
*Nursing Disposition Last Done: 06/27/25 11:59
ED-Psychological Assessment Last Done: 06/27/25 11:59
Discharge Date and Time
Discharge Date/Time: 06/27/25 12:01
Print Language: GHANAIAN
[2025-06-27 11:58] VITALS: BP 128/74
== END 2025-06-27 12:01 | disposition home or self-care (01) ==
LOC: EMR 10:45
PROVIDERS: EMERGENCY PHYSICIAN Emergency Medicine; FAMILY PHYSICIAN Internal Medicine
DX: F41.9 Anxiety disorder, unspecified (principal); R03.0 Elevated blood-pressure reading, without diagnosis of hypertension; F32.A Depression, unspecified; F41.0 Panic disorder [episodic paroxysmal anxiety]; K21.9 Gastro-esophageal reflux disease without esophagitis; M79.7 Fibromyalgia; G62.9 Polyneuropathy, unspecified; T42.4X6A Underdosing of benzodiazepines, initial encounter; Z91.128 Patient's intentional underdosing of medication regimen for other reason; Z63.79 Other stressful life events affecting family and household; Z85.3 Personal history of malignant neoplasm of breast; Z90.13 Acquired absence of bilateral breasts and nipples; Z98.84 Bariatric surgery status; Z80.6 Family history of leukemia
CPT/HCPCS: 99283

== ENCOUNTER 2025-08-18 22:38 | Emergency (ER) | payer OTHER, SELFPAY ==
[2025-08-18 22:40] VITALS: BP 157/96
[2025-08-18 22:59] VITALS: BMI 24.5
--- NOTE | 2025-08-18 23:22 | ED.GENMED ---
History of Present Illness
General
Chief Complaint: Heart Rate Problem
Source: patient, records, spouse and previous hospital records
Exam Limitations: none
Time Seen by Provider: 08/18/25 22:51
Nursing documentation reviewed up to this point in time: agreed with
History of Present Illness
History of Present Illness:
44-year-old female presents for chest pain shortness of breath palpitations onset 2 hours ago while sleeping history of anxiety and fibromyalgia meds have been adjusted recently started on Ativan instead of another benzo by her psychiatrist also
started on tramadol for fibromyalgia she has had breast cancer previously numerous breast surgeries apparently, no history of DVT PE no calf pain no hemoptysis no fever
Patient says previously she was treated with IV Ativan 2 mg x 2 when she had similar complaints
Past History
Past History
ED Past Medical History: Cancer (Breast), Fibromyalgia, GERD, Psychiatric (Anxiety, Depression, Panic disorder) and Other (Vertigo, Migraines, Cellulitis, Neuropathy, numbness/tingling arms and legs. Demyelination of the Cervical spine, Anemia, )
ED Past Surgical History: Gynecological ( oophorectomy in 2017) and Other (Bilateral mastectomies 06/2014. Then reconstruction with transflap ( Failed), Recently reconstruction with right shoulder musculature 2017 right breast, gastric bypass,
Nipple reconstuction)
Social History
Tobacco: Non-smoker
Alcohol: None
Drug: None
Personal:
Living: with family
Employment: Employed
Family History
Family History: Other (Mother with COPD, father with leukemia)
Review of Systems
Review of Systems
All Other Systems: Not applicable
Constitutional: Denies fever or chills
Respiratory: Reports trouble breathing
Cardiac: Reports chest pain and palpitations
ABD/GI: Reports no symptoms
: Reports no symptoms
Musculoskeletal: Reports no symptoms
Psychiatric: Reports anxiety
Phy Exam
Physical Exam
Physical Exam:
Physical Exam
General: no apparent distress, not acutely ill
Neck: No jaundice
Heart: Tachycardic
Lungs: no acute respiratory distress. clear bilaterally
Abdomen: Nontender
Neuro: alert and oriented. no focal neurological deficits
Skin: no rash
Psychiatric: well kept. interactive and cooperative
Extremities: no edema. no calf tenderness.
Course
Orders/Labs/Results
Orders:
Orders
08/18/25 22:43
EKG [Electrocardiogram (*1)] Urgent
Reason for Study: Bradycardia / Tachycardia
EKG- Treatment ONCE
08/18/25 23:18
Lorazepam [Ativan] 2 mg IV NOW STA
08/18/25 23:19
Cardiac Monitoring- Treatment ONCE
Test Result ONCE
08/18/25 23:43
Complete Blood Count/With Diff Urgent
Comprehensive Metabolic Panel Urgent
D-Dimer Urgent
HCG, Serum Qualitative Screen Urgent
Magnesium Urgent
TSH Urgent
Troponin I Urgent
Abnormal Lab Results
08/18/25
23:43
RBC 4.07 L 10^6/uL
(4.20-5.40)
Hct 36.2 L %
(37.0-47.0)
MCH 31.4 H pg
(27.0-31.0)
Potassium 3.4 L mmol/L
(3.5-5.1)
BUN 5 L mg/dl
(7-17)
Creatinine 0.5 L mg/dL
(0.6-1.0)
08/18/25 23:43
08/18/25 23:43
Vital Signs
Initial and Last Documented VS:
Initial Vital Signs
Temp Pulse Resp BP Pulse Ox
98.4 F 133 24 157/96 100
08/18/25 22:40 08/18/25 22:40 08/18/25 22:40 08/18/25 22:40 08/18/25 22:40
Last Documented Vital Signs
Temp Pulse Resp BP Pulse Ox
98.4 F 96 12 157/96 98
08/18/25 22:40 08/19/25 00:00 08/19/25 00:00 08/18/25 22:40 08/19/25 00:00
MDM/Problems Addressed
Differential Diagnosis Includes:
PE anxiety less likely ACS low clinical suspicion for pneumonia or pneumothorax
MDM/Problems Addressed:
Chest pain shortness of breath palpitations anxiety
Chronic conditions affecting care:
Anxiety fibromyalgia
Acute Exacerbation and/or Progression of Chronic Illness:
Anxiety fibromyalgia
*Pulse Oximetry
SaO2: 99
Oxygen Mode of Delivery: Room air
Patient hypoxic: no
*EKG
Interpreted by ED Provider?: Yes
Interpretation: abnormal
Comparison EKG: no comparison EKG present
Heart Rate: 118
Rate: tachycardiac
Rhythm: sinus
Ischemia: non-specific ST changes
*Manager R D Interpretation
Rate: tachycardiac
Interpretation: abnormal
Heart Rate: 118
Rhythm: sinus
*Critical Care Note
Total Time (30-74mins, 75-104mins- exclusive of procedures): Not Applicable
Update Note
Update Note:
1 AM update troponin D-dimer noted patient appears comfortable
ED Attending Note
-
Portions of this chart may have been created with voice recognition software.� Occasional wrong word or��sound alike� substitutions may have occurred due to the inherent limitations of voice recognition software.
Discharge Plan
Departure
Patient Disposition: Home (Routine Discharge)
Date of Disposition: 08/19/25
Time of Disposition: 01:02
Patient with high blood pressure during this ER visit?: No
Condition: Good
Discharge Problem:
Anxiety
Instructions: Anxiety in adults - ED (DC)
Prescriptions:
No Action
Vitamin B12 1,000 MG
1 dose SC MONTHLY
Rx Instructions:
due next month
anastrozole 1 MG tablet
1 mg PO DAILY
verapamil 80 MG tablet
80 mg PO TID
clorazepate dipotassium [Tranxene T-Tab] 7.5 mg Tablet
15 mg PO TID
Prolia 60 mg/mL Syringe
60 mg SC [id number]
Rx Instructions:
due in june
desvenlafaxine succinate [Pristiq] 100 mg Tablet Extended Release 24 Hr
100 mg PO DAILY
Nucynta 100 mg Tablet
100 mg PO TID
Vraylar 3 mg Capsule
3 mg PO DAILY
acetaminophen [Tylenol Ex Str Arthritis Pain] 500 mg Tablet
1,000 mg PO Q6H PRN (Reason: pain)
prazosin [Minipress] 5 mg Capsule
5 mg PO HS
Quviviq 50 mg Tablet
50 mg PO HS
lorazepam [Ativan] 1 mg tablet
1 mg PO TID PRN (Reason: anxiety) Qty: 6 0RF
Referrals:
UNKNOWN - PT DOES,NOT KNOW [Unknown Provider]
Activity Restrictions/Additional Instructions:
Follow-up with Dr. Carpio your psychiatrist and primary care provider
Interventions
Interventions:
*General Assessment Last Done: 08/18/25 22:40
*Neglect/Abuse Screening Last Done: 08/18/25 22:40
*ED COVID-19 Vaccine History Last Done: 08/18/25 22:59
*ED Influenza Vaccine History Last Done: 08/18/25 22:59
[facility] Fall Risk Assessment Tool Last Done: 08/18/25 22:59
*Risk Screen - Suicide (C-SSRS) Last Done: 08/18/25 22:40
ED- Cardiac Assessment Last Done: 08/18/25 23:02
ED- Pulmonary Assessment Last Done: 08/18/25 23:02
Discharge Date and Time
Print Language: SAMI
[2025-08-18] MEDS: ATIVAN 2 MG IV (23:43)
[2025-08-18 23:56] LABS: Hematocrit 36.2 % (37.0-47.0); Hemoglobin 12.8 g/dL (12.0-16.0); Mean Corp Hgb Conc. 35.4 g/dL (33.0-37.0); Mean Corpuscular Volume 88.9 fL (81.0-99.0); Nucleated Red Blood Cells % 0 %; Platelet Count 217 10^3/uL (130-400); Red Cell Dist. Width 12.5 % (11.5-14.5)
[2025-08-19 00:07] LABS: HCG, Serum Qualitative Screen Negative
[2025-08-19 00:16] LABS: Troponin I < 0.012 ng/ml
[2025-08-19 00:26] LABS: ALT (SGPT) 18 U/L (0-35); AST (SGOT) 20 U/L (14-36); Albumin 4.4 g/dl (3.5-5.0); Alkaline Phosphatase 46 U/L (38-126); Blood Urea Nitrogen 5 mg/dl (7-17); Calcium 9.0 mg/dl (8.4-10.2); Carbon Dioxide 26 mmol/L (22-30); Chloride 103 mmol/L (98-107); Estimated Creatinine Clearance 116 ml/min; Glucose 99 mg/dl (70-99); Magnesium 2.1 mg/dl (1.6-2.3); Potassium 3.4 mmol/L (3.5-5.1); Sodium 138 mmol/L (135-145); Total Protein 6.7 g/dl (6.3-8.2); eGFR > 60.00
[2025-08-19 00:36] LABS: TSH 3.93 uIU/ml (0.47-4.68)
[2025-08-19 00:52] LABS: D-Dimer < 0.27 ug/mlFEU (0.00-0.50)
== END 2025-08-19 02:02 | disposition home or self-care (01) ==
LOC: EMR 22:38
PROVIDERS: EMERGENCY PHYSICIAN Emergency Medicine; FAMILY PHYSICIAN Internal Medicine
DX: F41.9 Anxiety disorder, unspecified (principal); M79.7 Fibromyalgia; Z85.3 Personal history of malignant neoplasm of breast; Z90.13 Acquired absence of bilateral breasts and nipples
CPT/HCPCS: 99284; 96374; 80053; 83735; 84443; 84484; 84703; 85025; 85379; 93005

== ENCOUNTER 2025-08-19 18:00 | Emergency (ER) | payer OTHER, SELFPAY ==
[2025-08-19 18:10] VITALS: BP 152/107
[2025-08-19 19:08] VITALS: BP 125/85
[2025-08-19 20:00] VITALS: BP 126/92
[2025-08-19 21:00] VITALS: BP 127/92
[2025-08-19 22:00] VITALS: BP 123/85
--- NOTE | 2025-08-19 22:57 | ED.GENMED ---
History of Present Illness
General
Chief Complaint: Anxiety
Source: patient
Exam Limitations: none
Time Seen by Provider: 08/19/25 20:51
Nursing documentation reviewed up to this point in time: agreed with
History of Present Illness
History of Present Illness:
Patient to the emergency department with complaint of anxiety escalation, panic attack. She states her psychiatrist had changed her medication a few weeks back and since then she has noticed an increase in anxiety. She is currently taking Ativan 2
mg 3 times daily but feels that this is not been helpful for her. She was seen in the emergency department yesterday for similar complaint. She was given 2 mg of IV Ativan with improvement. She is requesting repeat dose tonight. She denies
SI/HI. To the emergency department accompanied by spouse for evaluation.
Past History
Past History
ED Past Medical History: Cancer (Breast), Fibromyalgia, GERD, Psychiatric (Anxiety, Depression, Panic disorder) and Other (Vertigo, Migraines, Cellulitis, Neuropathy, numbness/tingling arms and legs. Demyelination of the Cervical spine, Anemia, )
ED Past Surgical History: Gynecological ( oophorectomy in 2017) and Other (Bilateral mastectomies 06/2014. Then reconstruction with transflap ( Failed), Recently reconstruction with right shoulder musculature 2017 right breast, gastric bypass,
Nipple reconstuction)
Social History
Tobacco: Non-smoker
Alcohol: None
Drug: None
Personal:
Living: with family
Employment: Employed
Family History
Family History: Other (Mother with COPD, father with leukemia)
Review of Systems
Review of Systems
Allergies reviewed?: Yes
All Other Systems: ROS reviewed and negative except as documented in HPI and ROS
Constitutional: Reports no symptoms
EENT: Reports no symptoms
Respiratory: Reports no symptoms
Cardiac: Reports no symptoms
ABD/GI: Reports no symptoms
: Reports no symptoms
Musculoskeletal: Reports no symptoms
Skin: Reports no symptoms
Neurological: Reports no symptoms
Psychiatric: Reports depression and anxiety
Phy Exam
General Physical Exam
General Presentation: well appearing and mild distress
General age: appears stated age
General Skin: warm and dry
General Habitus: normal
General Mental: alert
Cardiovascular Exam
Cardiovascular Exam: regular rate/rhythm
Neurological Exam
Neurological Exam: alert, oriented x3, CN II-XII intact, no motor deficits, no sensory deficits and speech normal
Musculoskeletal Exam
Musculoskeletal Exam: full ROM and neuro vasc intact
Skin Exam
Skin Exam: normal color, warm/dry and no rash
Psychiatric Exam
Psychiatric Exam: anxious
Course
Orders/Labs/Results
Orders:
Orders
08/19/25 18:13
Electrocardiogram (*1) Urgent
Reason for Study: Chest Pain
EKG- Treatment ONCE
08/19/25 22:55
Lorazepam [Ativan] 2 mg IV NOW STA
Vital Signs
Initial and Last Documented VS:
Initial Vital Signs
Temp Pulse Resp BP Pulse Ox
98.5 F 135 18 152/107 98
08/19/25 18:10 08/19/25 18:10 08/19/25 18:10 08/19/25 18:10 08/19/25 18:10
Last Documented Vital Signs
Temp Pulse Resp BP Pulse Ox
98.5 F 107 15 113/81 95
08/19/25 18:10 08/20/25 00:13 08/20/25 00:13 08/20/25 00:13 08/20/25 00:00
*Pulse Oximetry
SaO2: 100
Oxygen Mode of Delivery: Room air
Patient hypoxic: no
*Critical Care Note
Total Time (30-74mins, 75-104mins- exclusive of procedures): Not Applicable
Update Note
Update Note:
Patient to the emergency department for evaluation of increased anxiety. She has been seen here in the past for the same, last visit was yesterday. She reports that her medication was changed and that she is now taking Ativan 3 times daily and
this has not been helpful for her. She was given 2 mg of IV Ativan yesterday and reported great improvement overall. However anxiety returned today. She came to the emergency department requesting a repeat dose of IV Ativan. She denies any
suicidal or homicidal ideation. She states that she will contact her psychiatrist first thing Wednesday morning for follow-up. She agrees to return to the emergency department for any changes in the worsening of her symptoms. She is given 2 mg of IV
Ativan in department. Patient recheck completed and she is resting comfortably in no distress. She is discharged home with family.
ED Attending Note
-
Portions of this chart may have been created with voice recognition software.� Occasional wrong word or��sound alike� substitutions may have occurred due to the inherent limitations of voice recognition software.
Discharge Plan
Departure
Patient Disposition: Home (Routine Discharge)
Date of Disposition: 08/20/25
Time of Disposition: 00:08
Patient with high blood pressure during this ER visit?: No
Condition: Good
Covid-19: Not Applicable
Discharge Problem:
Anxiety
Instructions: Anxiety, Adult (DC)
Prescriptions:
No Action
Vitamin B12 1,000 MG
1 dose SC MONTHLY
Rx Instructions:
due next month
anastrozole 1 MG tablet
1 mg PO DAILY
verapamil 80 MG tablet
80 mg PO TID
clorazepate dipotassium [Tranxene T-Tab] 7.5 mg Tablet
15 mg PO TID
Prolia 60 mg/mL Syringe
60 mg SC [id number]
Rx Instructions:
due in june
desvenlafaxine succinate [Pristiq] 100 mg Tablet Extended Release 24 Hr
100 mg PO DAILY
Nucynta 100 mg Tablet
100 mg PO TID
Vraylar 3 mg Capsule
3 mg PO DAILY
acetaminophen [Tylenol Ex Str Arthritis Pain] 500 mg Tablet
1,000 mg PO Q6H PRN (Reason: pain)
prazosin [Minipress] 5 mg Capsule
5 mg PO HS
Quviviq 50 mg Tablet
50 mg PO HS
lorazepam [Ativan] 1 mg tablet
1 mg PO TID PRN (Reason: anxiety) Qty: 6 0RF
Referrals:
Korina Darden MD [Family Provider, Internal Medicine] - Tomorrow
Interventions
Interventions:
*General Assessment Last Done: 08/19/25 18:10
*Neglect/Abuse Screening Last Done: 08/19/25 18:10
*ED COVID-19 Vaccine History Last Done: 08/20/25 00:17
*ED Influenza Vaccine History Last Done: 08/20/25 00:17
[facility] Fall Risk Assessment Tool Last Done: 08/19/25 18:35
*Risk Screen - Suicide (C-SSRS) Last Done: 08/19/25 18:12
*Nursing Disposition Last Done: 08/20/25 00:18
ED-Psychological Assessment Last Done: 08/19/25 19:35
Discharge Date and Time
Discharge Date/Time: 08/20/25 00:18
Print Language: ITALIAN
[2025-08-19 23:00] VITALS: BP 126/91
[2025-08-19] MEDS: ATIVAN 2 MG IV (23:09)
[2025-08-20 00:13] VITALS: BP 113/81
== END 2025-08-20 00:18 | disposition home or self-care (01) ==
LOC: EMR 18:00
PROVIDERS: EMERGENCY PHYSICIAN Emergency Medicine; FAMILY PHYSICIAN Internal Medicine
DX: F41.9 Anxiety disorder, unspecified (principal); M79.7 Fibromyalgia; K21.9 Gastro-esophageal reflux disease without esophagitis; F32.A Depression, unspecified; F41.0 Panic disorder [episodic paroxysmal anxiety]; G43.909 Migraine, unspecified, not intractable, without status migrainosus; G62.9 Polyneuropathy, unspecified; Z79.899 Other long term (current) drug therapy; Z85.3 Personal history of malignant neoplasm of breast; Z90.13 Acquired absence of bilateral breasts and nipples; Z98.84 Bariatric surgery status; Z88.8 Allergy status to other drugs, medicaments and biological substances
CPT/HCPCS: 99284; 96374; 93005